=== PATIENT | male | born 1935 | race Caucasian/White ===

== ENCOUNTER 2021-06-27 01:42 | Emergency (ER) | payer MEDICARE, OTHER, SELFPAY ==
--- NOTE | ~2021-06-27 | XR_ITS ---
EXAMINATION: XR RIBS, RIGHT WITH CHEST CLINICAL INFORMATION: Fall and right chest pain COMPARISON: 07/14/2014 TECHNIQUE: 3 views of the right ribs were obtained. PA chest. FINDINGS: Lung volumes are symmetric. No focal consolidation is seen. No evidence of pneumothorax, pleural effusion, or pulmonary edema. Cardiac mediastinal silhouette appears unremarkable accounting for some patient rotation. There is a questionable nondisplaced lateral right 10th rib fracture. XR/XR ribs RT min 3V w CXR1V IMPRESSION: Questionable nondisplaced lateral right 10th rib fracture.
[2021-06-27 01:57] VITALS: BP 189/78; PULSE 63; RESP 24; TEMP 36.5; O2SAT 97; BMI 24.3
--- NOTE | 2021-06-27 02:03 | ECG_ITS ---
Test Reason : WEAKNESS Blood Pressure : / mmHG Vent. Rate : 058 BPM Atrial Rate : 058 BPM P-R Int : 262 ms QRS Dur : 108 ms QT Int : 414 ms P-R-T Axes : 015 -39 021 degrees QTc Int : 406 ms Sinus bradycardia with 1st degree A-V block Left axis deviation Pulmonary disease pattern Abnormal ECG When compared with ECG of 14-JUL-2014 01:06, NV interval has increased Vent. rate has decreased BY 35 BPM Referred By: Generic ED Physician Electronically Signed By:JADA GRIFFITHS
[2021-06-27 02:12] VITALS: BP 173/69; PULSE 57
[2021-06-27 02:14] LABS: MANUAL DIFF FLAG NO
[2021-06-27 02:15] LABS: Basophils Percent Auto 0.5 % (0-2); Eosinophils Absolute Auto 0.1 X10*3/uL (0.0-0.4); Eosinophils Percent Auto 1.3 % (0-4); Imm Gran Abs Auto 0.04 X10*3/uL (0.00-0.03); Imm Gran Pct Auto 0.5 % (0.0-0.4); Lymphocytes Absolute Auto 1.6 X10*3/uL (1.2-4.9); Lymphocytes Percent Auto 18.9 % (20-40); Mean Corpuscular HGB Conc 34.1 g/dl (31.0-36.0); Mean Corpuscular Hemoglobin 30.8 pg (27.0-33.0); Mean Corpuscular Volume 90.3 fL (80-98); Mean Platelet Volume 10.3 fL (9.4-12.4); Neutrophils Absolute Auto 5.9 X10*3/uL (2.0-8.3); Neutrophils Percent Auto 67.8 % (45-73); Platelet Count 180 X10*3/uL (160-400); Red Blood Count 4.54 X10*6/uL (4.60-5.80); Red Cell Distribution Width 13.8 % (11.0-16.0); White Blood Count 8.6 X10*3/uL (4.8-10.8)
[2021-06-27 02:18] VITALS: BP 118/73; BP 161/72; PULSE 71; PULSE 83
--- NOTE | 2021-06-27 02:21 | PC.NURSE ---
IV established, labs obtained. Orthostatic VS completed, MD notified of orthos. microbiology technician at bedside for EKG. Awaiting XRay and labs.
[2021-06-27 02:34] LABS: Anion Gap 14 (12-20); Blood Urea Nitrogen 18 mg/dL (9-16); Carbon Dioxide 21 mmol/L (22-29); Chloride 107 mmol/L (96-108); Creatinine Clr Calc Pharmacy 41.2; Estimated Glomerular Filt Rate 53; Glucose Random 110 mg/dL (60-115); Potassium 4.2 mmol/L (3.3-5.1); Sodium 138 mmol/L (135-145); Troponin-I High Sensitivity < 3.5 ng/L (<3.5-35.0)
--- NOTE | 2021-06-27 02:35 | PC.NURSE ---
at bedside for primary eval.
--- NOTE | 2021-06-27 02:43 | ED_ITS ---
HPI - Fall General Chief Complaint: Fall Stated Complaint: fall/right side pain Time Seen by Provider: 06/27/21 02:41 Source: patient and family (Spouse) Mode of arrival: ambulatory Limitations: no limitations History of Present Illness HPI Narrative: 85 years old male came in for evaluation of right-sided chest harriett n. This is an 85-year-old male been having episodes of dizziness and syncope for the past 6 months, patient had syncopal episodes 4 times for the past 6 months last syncope was 5 days ago when he felt dizzy and fell, patient landed on the counter edge hitting his right side of the chest, no head or neck injury, patient has been having right-sided chest wall pain since fall, patient decline headache or neck pain. No chest pain, no difficulty breathing, patient has been hydrating himself well. Related Data Allergies Allergy/AdvReac Type Severity Reaction Status Date / Time Penicillins [PENICILLINS] Allergy Unknown HIVES Unverified 06/27/21 02:03 sulfamethoxazole Allergy Unknown EROSION TO Unverified 06/27/21 02:03 [From BACTRIM] MOUTH trimethoprim [From BACTRIM] Allergy Unknown EROSION TO Unverified 06/27/21 02:03 MOUTH oxycodone [OXYCODONE] AdvReac Severe DELERIUM, Unverified 06/27/21 02:03 CONFUSION Review of Systems Review of Systems: All other systems are reviewed and are negative Constitutional: Reports as per HPI and Reports no additional constitutional complaints Eyes: Reports as per HPI and Reports no additional eye complaints Reports system reviewed and no additional complaints, except as documented Cardiovascular: Reports as per HPI and Reports no additional cardiovascular complaints Respiratory: Reports as per HPI and Reports no additional respiratory complaints Gastrointestinal: Reports as per HPI and Reports no additional gastrointestinal complaints Genitourinary: Reports no additional female genitourinary complaints Musculoskeletal: Reports no additional musculoskeletal complaints Skin/Breast: Reports system reviewed and no additional complaints, except as docu Psychiatric: Reports no additional psychiatric complaints Endocrine: Reports no additional endocrine complaints Hematologic/Lymphatic: Reports no additional hematologic/lymphatic complaints Allergic/Immunologic: Reports no additional allergic/immunologic complaints Reports system reviewed and no additional complaints, except as documented and Reports Abnormal speech present [facility] Past Medical History Medical History (Updated 06/27/21 @ 04:09 by Leo Lee MD) GERD (gastroesophageal reflux disease) Hyperlipemia Hypertension Social History Social History Advance Directives: No Physical Exam Vital Signs: Vital Signs: Last Vital Signs Temp 97.7 F 06/27/21 01:57 Pulse 83 06/27/21 02:18 Resp 24 H 06/27/21 01:57 BP 118/73 06/27/21 02:18 Pulse Ox 97 06/27/21 01:57 Body Mass Index 24.3 Vital signs have been reviewed as appeared to be correct. Blood pressure normal. Heart rate normal. Respiration rate normal. Temperature normal. Oxygen saturation normal. Patient found to be orthostatic Appearance: Alert. Oriented X3. No acute distress. Head: Normal external exam. Normocephalic. Atraumatic. No Valenzuela signs noted. No raccoon eyes noted Eyes: PERRLA. EOMI. Conjunctiva and sclera normal. Eyelids normal. ENT: TM's Normal. Pharynx normal. Uvula midline. Moist mucous membranes. No trismus noted. No drooling noted. No muffled voice noted. Neck: Normal inspection. Neck supple. FROM. No adenopathy. Thyroid Normal. No meningeal signs. No neck mass noted. CVS: Normal heart rate and rhythm. Heart sound normal. No murmurs noted. Pulses normal throughout. Respiratory: No respiratory distress. Painless inspiration. Breath sounds normal. No wheezes/rales/rhonchi noted. Right chest wall tenderness, no step- off, no deformity. No accessory muscle usage noted or decreased air movement noted. Abdomen: Soft and nontender. Bowel sounds normal in all 4 quadrants. No distenti on noted. No organomegaly noted. No visible injury noted. Back: No CVA tenderness. Full range of motion noted. Skin: Skin warm and dry. Normal skin color. Normal skin turgor. No rashes/lesions/lacerations noted. Extremities: No lower extremity edema. Extremities exhibit normal range of motion. Extremities nontender. Neuro: Oriented X 3. Cranial nerve exam: II-XII are grossly intact No motor deficit. No sensory deficit. Reflexes normal. Course Course Course Narrative: Assessment and plan. 85-year-old male came in with right-sided chest wall pain after he fell 5 days ago questionable syncopal episode, x-ray showing nondisplaced fracture of the 10th rib. Patient found to be orthostatic in the emergency department received 1 L fluid, patient now feels better ambulating in the emergency department with stable vital signs. To use Tylenol to control pain and do deep breath exercising to prevent lung atelectases and infection. Patient also was instructed to follow up with his Pcp. Patient's vital signs are positive for orthostatic, improved with IV hydration patient was instructed to drink plenty of fluids at home. MDM - Fall Lab Data Attestation: I reviewed the patient's lab results. Result diagrams: 06/27/21 02:10 06/27/21 02:10 Labs: Lab Results 06/27/21 06/27/21 06/27/21 Range/Units 02:10 02:10 02:10 WBC 8.6 (4.8-10.8) X10*3/uL RBC 4.54 L (4.60-5.80) X10*6/uL Hgb 14.0 (14.0-18.0) g/dl Hct 41.0 L (42-52) % MCV 90.3 (80-98) fL MCH 30.8 (27.0-33.0) pg MCHC 34.1 (31.0-36.0) g/dl RDW 13.8 (11.0-16.0) % Plt Count 180 (160-400) X10*3/uL MPV 10.3 (9.4-12.4) fL Immature Gran % (Auto) 0.5 H (0.0-0.4) % Neut % (Auto) 67.8 (45-73) % Lymph % (Auto) 18.9 L (20-40) % [place] % (Auto) 11.0 (2-11) % Eos % (Auto) 1.3 (0-4) % Baso % (Auto) 0.5 (0-2) % Lymph # (Auto) 1.6 (1.2-4.9) X10*3/uL [place] # (Auto) 1.0 (0.1-1.2) X10*3/uL Eos # (Auto) 0.1 (0.0-0.4) X10*3/uL Baso # (Auto) 0.0 (0.0-0.2) X10*3/uL Abs Immat Gran (auto) 0.04 H (0.00-0.03) X10*3/uL Absolute Neuts (auto) 5.9 (2.0-8.3) X10*3/uL Absolute Nucleated RBC 0.000 (0.0-0.012) X10*3/uL Nucleated RBC % (auto) 0.0 (0.0-0.2) /100WBC Sodium 138 (135-145) mmol/L Potassium 4.2 (3.3-5.1) mmol/L Chloride 107 (96-108) mmol/L Carbon Dioxide 21 L (22-29) mmol/L Anion Gap 14 (12-20) BUN 18 H (9-16) mg/dL Creatinine 1.29 (0.5-1.4) mg/dL Estim Creat Clear Calc 41.2 Estimated GFR 53 Random Glucose 110 (60-115) mg/dL Calcium 9.0 (8.4-10.2) mg/dL Troponin I High Sens < 3.5 (<3.5-35.0) ng/L Imaging Data Chest x-ray: Radiologist's impression: Lung volumes are symmetric. No focal consolidation is seen. No evidence of pneumothorax, pleural effusion, or pulmonary edema. Cardiac mediastinal silhouette appears unremarkable accounting for some patient rotation. There is a questionable nondisplaced lateral right 10th rib fracture. ECG Data Attestation: I personally reviewed and interpreted this ECG as follows: Interpretation: Normal sinus rhythm with first-degree AV block, left axis deviation, prolonged QRS, no ischemic ST-T changes. Discharge Plan Discharge Clinical Impression: Closed rib fracture, Dehydration Patient Disposition: Home, Self-Care Instructions: Dehydration (ED), Rib Fracture (ED) Additional Instructions: Take Tylenol then wait 30 minutes to control the pain then do 10 deep breath and breathing exercises as we discussed do it at least 4 to 5 times a day. Referrals: Fernando Balbuena MD [Primary Care Provider] - 2 days
--- NOTE | 2021-06-27 02:52 | PC.NURSE ---
Pt off to XRay on hospital bed.
[2021-06-27] MEDS: Acetaminophen 325 MG TABLET 650 MG PO (03:02)
[2021-06-27] MEDS: 0.9 % Sodium Chloride 1,000 ML 999 ML IVCONT (03:02)
--- NOTE | 2021-06-27 03:03 | PC.NURSE ---
Pt returns from XRay, medicated per MAR. Awaiting XRay results.
[2021-06-27 04:23] VITALS: BP 185/68; PULSE 60; RESP 16; O2SAT 97
== END 2021-06-27 04:43 | disposition home or self-care (01) ==
PROVIDERS: Emergency Provider Emergency Medicine; PCP Internal Medicine
DX: S22.31XA Fracture of one rib, right side, initial encounter for closed fracture (principal); R55 Syncope and collapse; R07.81 Pleurodynia; E86.0 Dehydration; W01.10XA Fall on same level from slipping, tripping and stumbling with subsequent striking against unspecified object, initial encounter; Y93.9 Activity, unspecified; Y92.000 Kitchen of unspecified non-institutional (private) residence as the place of occurrence of the external cause; Y99.9 Unspecified external cause status
CPT/HCPCS: 36415; 71101; 80048; 84484; 85025; 93005; 96360; 99284

== ENCOUNTER → 2021-12-27 08:52 | Outpatient (BNVA) | payer MEDICARE, OTHER, SELFPAY | PROVIDERS: PCP Internal Medicine; Referring Provider Internal Medicine; Visit Provider Surgery | DX: K40.90 Unilateral inguinal hernia, without obstruction or gangrene, not specified as recurrent (principal) | CPT/HCPCS: 99202 ==

== ENCOUNTER 2022-04-07 18:58 | Emergency (ER) | payer MEDICARE, OTHER, SELFPAY ==
--- NOTE | ~2022-04-07 | XR_ITS ---
EXAMINATION: XR SHOULDER, LEFT CLINICAL INFORMATION: Fall, pain COMPARISON: None TECHNIQUE: Two views of the left shoulder. FINDINGS: There is a comminuted fracture of the proximal humerus involving the humeral neck, humeral head and greater tuberosity. There could be a degree of impaction/overriding of the fracture fragments. There is a mild displacement is present, with cortical offset medially and laterally. The humeral head grossly articulates with the glenoid. No dislocation seen. 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 There appears to be surrounding soft tissue swelling. XR/XR shoulder LT min 2V IMPRESSION: Comminuted mildly displaced proximal humeral fracture. [id number] left acromioclavicular arthritis.
[2022-04-07 19:05] VITALS: BP 150/84; PULSE 64; O2SAT 96
[2022-04-07 19:06] VITALS: BP 183/79; PULSE 63; RESP 18; TEMP 35.8; O2SAT 96; BMI 25.3
--- NOTE | 2022-04-07 19:09 | ECG_ITS ---
Test Reason : FALL Blood Pressure : / mmHG Vent. Rate : 056 BPM Atrial Rate : 056 BPM P-R Int : 274 ms QRS Dur : 094 ms QT Int : 400 ms P-R-T Axes : 027 -30 022 degrees QTc Int : 386 ms Sinus bradycardia with 1st degree A-V block Left axis deviation Abnormal ECG When compared with ECG of 27-JUN-2021 02:18, No significant change was found Referred By: Leo Lee Electronically Signed By:GINNY PAYAN
--- NOTE | 2022-04-07 19:10 | ED.FALL ---
HPI - Fall General Chief Complaint: Fall Stated Complaint: left shoulder pain /fall Time Seen by Provider: 04/07/22 19:08 Source: patient and EMS Mode of arrival: EMS Limitations: no limitations History of Present Illness HPI Narrative: 86-year-old male came in for evaluation after a fall. Patient must balance trying to catch himself before he fell ended up landing on left hand causing severe left shoulder pain. No headache or head injury, no LOC, no chest pain, no SOB, no abdominal pain, no lower extremity pain. Only complaining of left shoulder pain, small skin tear and abrasion to the left wrist. Related Data Home Medications Medication Instructions Recorded Confirmed metoprolol tartrate 50 mg tablet 50 mg PO BID 12/27/21 12/27/21 nifedipine 30 mg tablet,extended 30 mg PO DAILY 12/27/21 12/27/21 release pantoprazole 40 mg tablet,delayed 40 mg PO BID 12/27/21 12/27/21 release simvastatin 40 mg tablet 40 mg PO BEDTIME 12/27/21 12/27/21 Previous Rx's Medication Instructions Recorded oxycodone 5 mg tablet 5 mg PO Q8H PRN pain #5 tabs 04/07/22 Allergies Allergy/AdvReac Type Severity Reaction Status Date / Time Penicillins [PENICILLINS] Allergy Unknown HIVES Unverified 12/27/21 09:07 sulfamethoxazole Allergy Unknown EROSION TO Unverified 12/27/21 09:07 [From BACTRIM] MOUTH trimethoprim [From BACTRIM] Allergy Unknown EROSION TO Unverified 12/27/21 09:07 MOUTH oxycodone [OXYCODONE] AdvReac Severe DELERIUM, Unverified 12/27/21 09:07 CONFUSION Review of Systems Review of Systems: All other systems are reviewed and are negative Constitutional: Reports as per HPI and Reports no additional constitutional complaints Eyes: Reports as per HPI and Reports no additional eye complaints Reports system reviewed and no additional complaints, except as documented Cardiovascular: Reports as per HPI and Reports no additional cardiovascular complaints Respiratory: Reports as per HPI and Reports no additional respiratory complaints Gastrointestinal: Reports as per HPI and Reports no additional gastrointestinal complaints Genitourinary: Reports no additional female genitourinary complaints Musculoskeletal: Reports no additional musculoskeletal complaints Skin/Breast: Reports system reviewed and no additional complaints, except as docu Psychiatric: Reports no additional psychiatric complaints Endocrine: Reports no additional endocrine complaints Hematologic/Lymphatic: Reports no additional hematologic/lymphatic complaints Allergic/Immunologic: Reports no additional allergic/immunologic complaints Reports system reviewed and no additional complaints, except as documented and Reports Abnormal speech present [facility] Past Medical History Medical History GERD (gastroesophageal reflux disease) Hyperlipemia Hypertension Surgical History History of appendectomy History of cholecystectomy Family History Family History Sister Leukemia Social History Social History Alcohol intake: current Patient Tobacco Use Status: Current someday Tobacco user Advance Directives: No Advance Directives Information Provided: No Physical Exam Vital Signs: Vital Signs: Last Vital Signs Temp 96.5 F L 04/07/22 19:06 Pulse 63 04/07/22 19:06 Resp 18 04/07/22 19:06 BP 183/79 H 04/07/22 19:06 Pulse Ox 96 04/07/22 19:06 O2 Del Method 04/07/22 19:06 BMI result Body Mass Index 25.3 Vital signs have been reviewed as appeared to be correct. Blood pressure normal. Heart rate normal. Respiration rate normal. Temperature normal. Oxygen saturation normal. Appearance: Alert. Oriented X3. No acute distress. Head: Normal external exam. Normocephalic. Atraumatic. No Valenzuela signs noted. No raccoon eyes noted Eyes: PERRLA. EOMI. Conjunctiva and sclera normal. Eyelids normal. ENT: TM's Normal. Pharynx normal. Uvula midline. Moist mucous membranes. No trismus noted. No drooling noted. No muffled voice noted. Neck: Normal inspection. Neck supple. FROM. No adenopathy. Thyroid Normal. No meningeal signs. No neck mass noted. CVS: Normal heart rate and rhythm. Heart sound normal. No murmurs noted. Pulses normal throughout. Respiratory: No respiratory distress. Painless inspiration. Breath sounds normal. No wheezes/rales/rhonchi noted. Chest nontender. No accessory muscle usage noted or decreased air movement noted. Abdomen: Soft and nontender. Bowel sounds normal in all 4 quadrants. No distention noted. No organomegaly noted. No visible injury noted. Back: No CVA tenderness. Full range of motion noted. Skin: Skin warm and dry. Normal skin color. Normal skin turgor. No rashes/lesions/lacerations noted. Extremities: Left shoulder held in adduction position was tender and painful abduction. Neuro: Oriented X 3. Cranial nerve exam: II-XII are grossly intact No motor deficit. No sensory deficit. Reflexes normal. Course Course Course Narrative: Assessment and plan. 86-year-old male sustained a mechanical fall landing on his left arm causing fracture to the left shoulder. Left shoulder sling, ice, immobilization, NSAIDs p.r.n., follow-up with ortho. MDM - Fall Medical Records Attestation: I reviewed the patient's medical records. Imaging Data Left shoulder x-ray: Attestation: I personally reviewed and interpreted this imaging study as follows: Radiologist's impression: Comminuted mildly displaced proximal humeral fracture. ECG Data Attestation: I personally reviewed and interpreted this ECG as follows: Interpretation: Sinus bradycardia at 55 beats per minute, first-degree AV block, left axis deviation, otherwise unremarkable intervals. Discharge Plan Discharge Clinical Impression: Fracture of proximal end of left humerus Patient Disposition: Home, Self-Care Instructions: Proximal Humerus Fracture (ED) Prescriptions: New oxycodone 5 mg tablet 5 mg PO Q8H PRN (Reason: pain) Qty: 5 0RF Rx Instructions: Partial Fill upon patient request. No Action pantoprazole 40 mg tablet,delayed release (DR/EC) 40 mg PO BID simvastatin 40 mg tablet 40 mg PO BEDTIME nifedipine 30 mg tablet extended release 30 mg PO DAILY metoprolol tartrate 50 mg tablet 50 mg PO BID Referrals: Jovan Naylor MD [Physician] -
== END 2022-04-07 20:52 | disposition home or self-care (01) ==
PROVIDERS: Emergency Provider Emergency Medicine
DX: S42.202A Unspecified fracture of upper end of left humerus, initial encounter for closed fracture (principal); M25.512 Pain in left shoulder; F17.200 Nicotine dependence, unspecified, uncomplicated; W01.0XXA Fall on same level from slipping, tripping and stumbling without subsequent striking against object, initial encounter; Y93.9 Activity, unspecified; Y92.9 Unspecified place or not applicable; Y99.9 Unspecified external cause status; Z79.899 Other long term (current) drug therapy; Z71.6 Tobacco abuse counseling
CPT/HCPCS: 73030; 93005; 99283

== ENCOUNTER 2022-04-20 07:55 | Outpatient (REF) | payer MEDICARE, OTHER, SELFPAY ==
--- NOTE | ~2022-04-20 | XR_ITS ---
EXAMINATION: XR SHOULDER, LEFT CLINICAL INFORMATION: Pain COMPARISON: April 07, 2022 TECHNIQUE: Two views of the left shoulder. FINDINGS: There is a stable appearance of the comminuted proximal left humeral fracture involving the humeral head and neck and with some degree of impaction. No dislocation is evident. No definite callus formation is identified. XR/XR shoulder LT min 2V IMPRESSION: No change in alignment or appearance of proximal left humeral fracture.
== END 2022-04-20 07:56 | disposition home or self-care (01) ==
LOC: HO.HOSX 07:55
PROVIDERS: Visit Provider Physician Assistant
DX: S42.202A Unspecified fracture of upper end of left humerus, initial encounter for closed fracture (principal)
CPT/HCPCS: 73030; 99202

== ENCOUNTER 2022-05-18 08:12 | Outpatient (REF) | payer MEDICARE, OTHER, SELFPAY ==
--- NOTE | ~2022-05-18 | XR_ITS ---
EXAMINATION: XR SHOULDER, LEFT CLINICAL INFORMATION: Shoulder pain COMPARISON: 04/20/2022 TECHNIQUE: Three views of the left shoulder. FINDINGS: The humeral head remains well-positioned over the intact glenoid. Although the fracture lucency of the humeral neck persists, there is slightly increased sclerosis from healing response. The fracture line previously seen in the base of the greater tuberosity has become less conspicuous from progression in healing. The humeral head and shaft fragments are in near-anatomic position. There is persistent cortical overriding at the fracture site. No change in alignment compared to 04/20/2022. XR/XR shoulder LT min 2V IMPRESSION: The follow-up radiographs suggest mild, incomplete healing of the prior comminuted humeral fracture. No new injuries. Alignment is maintained at the glenohumeral joint.
== END 2022-05-18 08:13 | disposition home or self-care (01) ==
LOC: HO.HOSX 08:12
PROVIDERS: Visit Provider Physician Assistant
DX: M25.512 Pain in left shoulder (principal)
CPT/HCPCS: 73030

== ENCOUNTER → 2022-05-18 13:22 | Outpatient (BNVA) | payer MEDICARE, OTHER, SELFPAY | PROVIDERS: Visit Provider Physician Assistant | DX: M25.512 Pain in left shoulder (principal); S42.202D Unspecified fracture of upper end of left humerus, subsequent encounter for fracture with routine healing; X58.XXXD Exposure to other specified factors, subsequent encounter | CPT/HCPCS: 99212 ==

== ENCOUNTER 2022-06-28 08:00 | Outpatient (REF) | payer MEDICARE, OTHER, SELFPAY | END 2022-06-28 08:01 | disposition home or self-care (01) | LOC: HO.HOSX 08:00 | PROVIDERS: Visit Provider Physician Assistant | DX: Z13.89 Encounter for screening for other disorder (principal) ==

== ENCOUNTER 2023-05-10 11:53 | Outpatient (REF) | payer MEDICARE, OTHER, SELFPAY ==
[2023-05-10 15:03] LABS: Vitamin B12 269 pg/mL (200-900)
== END 2023-05-10 11:54 | disposition home or self-care (01) ==
LOC: HO.LAB 11:53
PROVIDERS: Visit Provider Psychiatry & Neurology Neurology
DX: G30.9 Alzheimer's disease, unspecified (principal)
CPT/HCPCS: 36415; 82607

== ENCOUNTER 2024-09-25 05:59 | Outpatient (REF) | payer MEDICARE, OTHER, SELFPAY ==
[2024-09-25 06:01] LABS: MANUAL DIFF FLAG NO
--- OUTSIDE RECORDS SUMMARY | 2024-09-25 06:04 | XMS_ITS | Continuity of Care Document ---
Author Organization [facility] Paulie Max Gurmeet lt Address [address] [place] [address]- Care Team Providers Care Timber Watchman Name Role Phone Liana Manoz Primary Care Physician [phone] Encounter [facility] Date(s): 08/28/24 - 09/04/24 [facility] Paulie Max Adult [address] [place] [address]- Encounter Diagnosis GERD (gastroesophageal reflux disease)(Discharge Diagnosis) - 08/28/24 Hyperlipidemia(Discharge Diagnosis) - 08/28/24 Medicare annual wellness visit, subsequent(Discharge Diagnosis) - 08/28/24 History of cardiac disorder(Discharge Diagnosis) - 08/28/24 Attending Physician: Liana Manzo Referring Physician: Brett Walker MD Encounter Type: Office Visit Allergies, Adverse Reactions, Alerts No Known Medication Allergies Immunizations Given and Recorded Vaccine Date Status Refusal Reason influenza virus vaccine, inactivated 1 07/10/23 Gi pamela influenza virus vaccine, inactivated 10/17/22 Lg rded influenza virus vaccine, inactivated 09/12/21 Lg rded influenza virus vaccine, inactivated 06/17/20 Lg rded influenza virus vaccine, inactivated 06/10/19 Lg rded influenza virus vaccine, inactivated 07/08/18 Lg rded influenza virus vaccine, inactivated 07/09/17 Lg rded influenza virus vaccine, inactivated 07/07/16 Lg rded influenza virus vaccine, inactivated 07/14/14 Lg rded [id number] 12y+ bivalent booster vax 10/17/22 Recorded SARS-CoV-2 (COVID-19) mRNA BNT-162b2 vac 09/06/21 Recorded SARS-CoV-2 (COVID-19) mRNA BNT-162b2 vac 12/09/20 Given SARS-CoV-2 (COVID-19) mRNA BNT-162b2 vac 11/18/20 Given pneumococcal 23-valent vaccine 09/16/13 Recorded 1Result Comment: [facility]-[id number] Medications metoprolol 50 mg oral tablet 50 mg, 1, tablet, By Mouth, 2 times a day, # 180 tablet, Refills 3, Tot. Refills 3, Maintenance, 08/14/24 11:43:00 AM EST, Route to Pharmacy Electronically, [facility]/pharmacy #[id number], Partial fill upon patient request if the prescription is for a schedule II opioid drug., 174.5, cm, 07/10/23 15:24:00 EDT, Height Start Date: 08/14/24 Status: Ordered Quantity: 180.0 Unit: tablet Repeat number: 4 Mirtazapine By Mouth, Daily at bedtime, 0 Refills, Maintenance, 08/28/24 8:59:00 AM EST, Partial fill upon patient request if the prescription is for a schedule II opioid drug. Start Date: 08/28/24 Status: Ordered Repeat number: 1 NIFEdipine (Eqv-Adalat CC) 30 mg oral tablet, extended release 1 tablet = 30 mg, By Mouth, Daily, # 90 tablet, 3 Refills, Maintenance, 01/09/24 4:39:00 PM EDT, ER Tablet, [facility]/pharmacy #[id number], Partial fill upon patient request if the prescription is for a schedule II opioid drug., 174.5, cm, 07/10/23 15:24:00 EDT, Height Start Date: 01/09/24 Stop Date: 01/03/25 Status: Ordered Quantity: 90.0 Unit: tablet Repeat number: 4 pantoprazole 40 mg oral delayed release tablet 1 tablet = 40 mg, By Mouth, Daily, # 30 tablet, 0 Refills, Maintenance, 07/10/23 3:30:00 PM EDT, EC Tablet Start Date: 07/10/23 Status: Ordered Quantity: 30.0 Unit: tablet Repeat number: 1 QUEtiapine 50 mg oral tablet 1 tablet = 50 mg, By Mouth, 2 times a day, 0 Refills, Maintenance, 08/28/24 8:59:00 AM EST, Partialfill upon patient request if the prescription is for a schedule II opioid drug. Start Date: 08/28/24 Status: Ordered Repeat number: 1 simvastatin 40 mg oral tablet 1, tablet, By Mouth, Daily at bedtime, # 90 tablet, Refills 1, Maintenance, 07/01/24 1:08:00 AM EDT,Route to Pharmacy Electronically, [id number], 174.5, cm, 02/14/24 9:51:00 EDT, Height Start Date: 07/01/24 Status: Ordered Quantity: 90.0 Unit: tablet Repeat number: 1 Trazodone By Mouth, 0 Refills, Maintenance, 08/28/24 8:59:00 AM EST, Partial fill upon patient request if theprescription is for a schedule II opioid drug. Start Date: 08/28/24 Status: Ordered Repeat number: 1 Problem List Condition Confirmation Course Effective Dates Status H ealth Status Informant Alzheimer disease Confirmed Active GERD (gastroesophageal reflux disease) Confirmed Active Hyperlipidemia Confirmed Active Left inguinal hernia Confirmed Active Diagnosis Diagnosis Type Effective Dates Health Status Clinical Service Informant GERD (gastroesophageal reflux disease) Discharge Diagnosis 08/28/24 Hyperlipidemia Discharge Diagnosis 08/28/24 Medicare annual wellness visit, subsequent Discharge Diagnosis 08/28/24 History of cardiac disorder Discharge Diagnosis 08/28/24 Vital Signs Most recent to oldest [Reference Range]: 1 Height 174.5 cm (08/28/24 9:00 AM) Weight 62.5 kg (08/28/24 9:00 AM) Oxygen Saturation [94-100 %] 99 % (08/28/24 9:00 AM) Pulse Rate [55-90 bpm] 71 bpm (08/28/24 9:00 AM) Body Mass Index [18.5-24.99 kg/m2] 20.53 kg/m2 (08/28/24 9:00 AM) Blood Pressure [90-138/55-84 mm Hg] 111/ 63mm Hg (08/28/24 9:00 AM) Temperature [96.8-100.4 DegF] 98.7 DegF (08/28/24 9:00 AM) Mode of Delivery (Oxygen) Room air (08/28/24 9:00 AM) Blood pressure sites Arm, left (08/28/24 9:00 AM) Temperature Route Oral (08/28/24 9:00 AM) Weight Obtained Via Standing scale (08/28/24 9:00 AM) Social History Social History Type Response Smoking Status 5-9 cigarettes (betw een 10/11 to 1/2 pack)/day in last 30 days entered on: 07/10/23 Sex Sex Representation Male (finding) Patient Care team information Care Team Personnel Name: Liana Manzo Position: S PCO Associate Professional Member Role: PCP Address: [address] [place], [place] [id number] Telecom: Care Team Related Persons Name: PATTI ALVAREZ JR Name: CHRISSY FLEMING Insurance Providers Guarantor name: PATTI ALVAREZ Health Plan Information #: 1 Payer: MEDICARE PART B OUTPT Member Number: [id number] Policy Number: NA Group Number: NA Health Plan Information #: 2 Payer: [facility] Member Number: [id number] Policy Number: NA Group Number: NA
[2024-09-25 06:14] LABS: Appearance Urine Clear; Color Urine Yellow; Glucose Urine UA Negative (Negative); Leukocyte Esterase Urine Negative (Negative); Nitrite Urine Negative (Negative); PH 7.5 (5.0-9.0); UMIC TRIGGER UACC YES; Urine Blood Negative (Negative); Urine Ketones Negative (Negative); Urine Protein 30 (1+) mg/dL (Neg-Trace)
[2024-09-25 06:18] LABS: Bacteria Urine None Seen (None Seen); Hyaline Casts Urine 0-2 /LPF (0-2); RBC Urine 0-2 /HPF (0-2); Squamous Epithelial Cell Urine 0-2 /HPF (0-2); WBC Urine 0-5 /HPF (0-5)
[2024-09-25 06:23] LABS: Anion Gap 11 (12-20); Blood Urea Nitrogen 28 mg/dL (9-16); Calcium 8.9 mg/dL (8.4-10.2); Carbon Dioxide 25 mmol/L (22-29); Chloride 110 mmol/L (96-108); Estimated Glomerular Filt Rate 59; Glucose Random 91 mg/dL (60-115); Potassium 4.1 mmol/L (3.3-5.1); Sodium 142 mmol/L (135-145)
[2024-09-25 07:04] LABS: Basophils Percent Auto 0.7 % (0-2); Eosinophils Absolute Auto 0.1 X10*3/uL (0.0-0.4); Eosinophils Percent Auto 1.3 % (0-4); Hemoglobin 11.2 g/dl (14.0-18.0); Imm Gran Abs Auto 0.02 X10*3/uL (0.00-0.03); Imm Gran Pct Auto 0.3 % (0.0-0.4); Lymphocytes Absolute Auto 0.9 X10*3/uL (1.2-4.9); Lymphocytes Percent Auto 14.6 % (20-40); Mean Corpuscular HGB Conc 33.9 g/dl (31.0-36.0); Mean Corpuscular Hemoglobin 30.4 pg (27.0-33.0); Mean Corpuscular Volume 89.7 fL (80.0-98.0); Mean Platelet Volume 10.8 fL (9.4-12.4); Monocytes Absolute Auto 0.8 X10*3/uL (0.1-1.2); Monocytes Percent Auto 12.8 % (2-11); Neutrophils Absolute Auto 4.2 x10*3/uL (2.0-8.3); Neutrophils Percent Auto 70.3 % (45-73); Platelet Count 171 X10*3/uL (160-400); Red Blood Count 3.68 X10*6/uL (4.60-5.80)
== END 2024-09-25 06:00 | disposition home or self-care (01) ==
LOC: HO.HSH3E 05:59
PROVIDERS: Visit Provider Nurse Practitioner
DX: I10 Essential (primary) hypertension (principal); K21.9 Gastro-esophageal reflux disease without esophagitis; F03.90 Unspecified dementia, unspecified severity, without behavioral disturbance, psychotic disturbance, mood disturbance, and anxiety
CPT/HCPCS: 36415; 80048; 81001; 85025

== ENCOUNTER 2024-12-25 08:07 | Outpatient (REF) | payer MEDICARE, OTHER, SELFPAY ==
[2024-12-25 09:13] LABS: Alanine Aminotransferase 10 U/L (0-40); Aspartate Amino Transferase 26 U/L (5-37); Cholesterol 91 mg/dL (<200); HDL Cholesterol 36 mg/dL (>40); LDL Cholesterol Calculated 47 mg/dL (<100); Triglycerides 44 mg/dL (<150)
== END 2024-12-25 08:08 | disposition home or self-care (01) ==
LOC: HO.HSH2N 08:07
PROVIDERS: Visit Provider Internal Medicine Interventional Cardiology
DX: E78.5 Hyperlipidemia, unspecified (principal); Z79.899 Other long term (current) drug therapy
CPT/HCPCS: 36415; 80061; 84450; 84460

== ENCOUNTER 2025-01-15 07:21 | Outpatient (REF) | payer MEDICARE, OTHER, SELFPAY ==
[2025-01-15 07:34] LABS: MANUAL DIFF FLAG NO
[2025-01-15 07:50] LABS: Basophils Percent Auto 0.5 % (0-2); Eosinophils Absolute Auto 0.1 X10*3/uL (0.0-0.4); Eosinophils Percent Auto 1.5 % (0-4); Hematocrit 35.7 % (42.0-52.0); Hemoglobin 11.7 g/dl (14.0-18.0); Imm Gran Abs Auto 0.01 X10*3/uL (0.00-0.03); Imm Gran Pct Auto 0.2 % (0.0-0.4); Lymphocytes Absolute Auto 0.9 X10*3/uL (1.2-4.9); Mean Corpuscular HGB Conc 32.8 g/dl (31.0-36.0); Mean Corpuscular Hemoglobin 29.5 pg (27.0-33.0); Mean Corpuscular Volume 89.9 fL (80.0-98.0); Mean Platelet Volume 10.9 fL (9.4-12.4); Monocytes Absolute Auto 1.1 X10*3/uL (0.1-1.2); Monocytes Percent Auto 19.1 % (2-11); Neutrophils Absolute Auto 3.7 x10*3/uL (2.0-8.3); Neutrophils Percent Auto 63.7 % (45-73); Platelet Count 161 X10*3/uL (160-400); Red Blood Count 3.97 X10*6/uL (4.60-5.80); Red Cell Distribution Width 14.3 % (11.0-16.0); White Blood Count 5.9 X10*3/uL (4.8-10.8)
[2025-01-15 07:59] LABS: Alanine Aminotransferase 10 U/L (0-40); Albumin Level 3.4 g/dL (3.5-5.0); Alkaline Phosphatase 137 U/L (39-117); Anion Gap 9 (12-20); Aspartate Amino Transferase 25 U/L (5-37); Bilirubin Total 0.3 mg/dL (0.0-1.0); Blood Urea Nitrogen 36 mg/dL (9-16); Calcium 8.9 mg/dL (8.4-10.2); Carbon Dioxide 25 mmol/L (22-29); Chloride 113 mmol/L (96-108); Estimated Glomerular Filt Rate 58; Glucose Fasting 84 mg/dL (60-99); Potassium 4.3 mmol/L (3.3-5.1); Sodium 143 mmol/L (135-145); Total Protein 6.2 g/dL (6.5-8.0)
[2025-01-15 08:13] LABS: Thyroid Stimulating Hormone 2.28 uIU/mL (0.32-4.0)
== END 2025-01-15 07:22 | disposition home or self-care (01) ==
LOC: HO.HSH2N 07:21
PROVIDERS: Visit Provider Internal Medicine Interventional Cardiology
DX: I10 Essential (primary) hypertension (principal); F03.90 Unspecified dementia, unspecified severity, without behavioral disturbance, psychotic disturbance, mood disturbance, and anxiety
CPT/HCPCS: 36415; 80053; 84443; 85025

== ENCOUNTER 2025-07-07 11:31 | Outpatient (REF) | payer MEDICARE, OTHER, SELFPAY ==
[2025-07-07 15:14] LABS: Appearance Urine Clear; Glucose Urine UA Negative (Negative); PH 6.5 (5.0-9.0); Specific Gravity - Urine 1.020 (1.005-1.025); UMIC TRIGGER UACC YES
== END 2025-07-07 11:32 | disposition home or self-care (01) ==
LOC: HO.HSH 11:31
PROVIDERS: Visit Provider Internal Medicine Interventional Cardiology
DX: F03.90 Unspecified dementia, unspecified severity, without behavioral disturbance, psychotic disturbance, mood disturbance, and anxiety (principal); R41.82 Altered mental status, unspecified
CPT/HCPCS: 81001; 81003

== ENCOUNTER 2025-07-08 06:09 | Outpatient (REF) | payer MEDICARE, OTHER, SELFPAY ==
[2025-07-08 06:14] LABS: MANUAL DIFF FLAG NO
[2025-07-08 06:30] LABS: Hematocrit 37.2 % (42.0-52.0); Hemoglobin 12.3 g/dl (14.0-18.0); Imm Gran Abs Auto 0.04 X10*3/uL (0.00-0.03); Imm Gran Pct Auto 0.5 % (0.0-0.4); Lymphocytes Absolute Auto 0.9 X10*3/uL (1.2-4.9); Mean Corpuscular HGB Conc 33.1 g/dl (31.0-36.0); Mean Corpuscular Hemoglobin 29.3 pg (27.0-33.0); Mean Corpuscular Volume 88.6 fL (80.0-98.0); NRBC Abs Auto 0.000 X10*3/uL (0.0-0.012); NRBC Pct Auto 0.0 /100WBC (0.0-0.2); Platelet Count 161 X10*3/uL (160-400); Red Blood Count 4.20 X10*6/uL (4.60-5.80); White Blood Count 7.8 X10*3/uL (4.8-10.8)
[2025-07-08 06:39] LABS: Anion Gap 10 (12-20); Blood Urea Nitrogen 20 mg/dL (9-16); Calcium 8.5 mg/dL (8.4-10.2); Carbon Dioxide 23 mmol/L (22-29); Chloride 110 mmol/L (96-108); Estimated Glomerular Filt Rate > 60; Potassium 4.1 mmol/L (3.3-5.1); Sodium 139 mmol/L (135-145)
== END 2025-07-08 06:10 | disposition home or self-care (01) ==
LOC: HO.HSH2N 06:09
PROVIDERS: Visit Provider Internal Medicine Interventional Cardiology
DX: Z13.89 Encounter for screening for other disorder (principal)
CPT/HCPCS: 36415; 80048; 85025